=== PATIENT | male | born 1955 | race American Indian/Alaskan Native ===

== ENCOUNTER 2018-07-30 13:37 | Emergency (ER) | payer MEDICARE ==
[2018-07-30 13:58] VITALS: BP 150/74
[2018-07-30] MEDS ORDERED: ZOFRAN IV ONE (14:33)
[2018-07-30] MEDS ORDERED: NACL 0.9% 1000 ML 1,000 ML IV ONE (14:33)
[2018-07-30] MEDS ORDERED: BENTYL IM ONE (14:33)
[2018-07-30] MEDS ORDERED: PEPCID IV ONE (14:33)
--- NOTE | 2018-07-30 14:36 | Emergency Department Report ---
Blank Doc - Documentation Documentation: Patient is a 63-year-old male with past history of ulcerative colitis who is presenting with 2 days of nausea vomiting diarrhea. Patient has diarrhea is watery. He is not noticing any blood in the vomit or stool. Patient unable to keep down even water and that is now feeling dry mouth thickness and some slight fatigue secondary to possible dehydration. Patient denies fever. Patient states that nausea vomiting diarrhea is not a normal symptom that he gets with his ULCERATIVE colitis. Patient will be sent to a treatment room for IV fluids meniscus symptomatic relief as well as a CT of the abdomen and pelvis with labs.
[2018-07-30 14:53] LABS: Hematocrit 40.4 % (35.5-45.6); Hemoglobin 13.5 gm/dl (11.8-15.2); Mean Corpuscular HGB Conc 33 % (32-34); Mean Corpuscular Hemoglobin 29 pg (28-32); Mean Corpuscular Volume 87 fl (84-94); Platelet Count 220 K/mm3 (140-440); Red Blood Count 4.62 M/mm3 (3.65-5.03); Red Cell Distribution Width 14.1 % (13.2-15.2)
[2018-07-30 15:08] LABS: Alanine Aminotransferase 30 units/L (7-56); Albumin 4.1 g/dL (3.9-5); BUN/Creatinine Ratio 16; Blood Urea Nitrogen 14 mg/dL (9-20); Hemolysis Index 4; Lipase 11 units/L (13-60)
[2018-07-30 15:37] LABS: Band Neutrophils # (Manual) 0.1 K/mm3; Basophils % (Manual) 0 % (0.0-1.8); Total Cells Counted 100
[2018-07-30 15:38] LABS: Platelet Estimate Consistent w Auto; RBC Morphology Normal
[2018-07-30 16:50] LABS: Bilirubin,Urine NEG (Negative); Blood,Urine NEG (Negative); Mucus,Urine 3+ /HPF; Urobilinogen,Urine < 2.0 mg/dL (<2.0)
[2018-07-30 16:51] LABS: Color,Urine Dark Yellow (Yellow)
[2018-07-30 16:52] LABS: RBC,Urine < 1.0 /HPF (0.0-6.0)
--- NOTE | 2018-07-30 17:24 | Cat Scan Report ---
FINAL REPORT EXAM: CT ABDOMEN PELVIS W CON HISTORY: NVD abd pain hx of Ulc. colitis TECHNIQUE: CT abdomen and pelvis with intravenous contrast PRIORS: None. FINDINGS: No acute abnormality identified in the lung bases. No focal abnormality identified within the liver parenchyma. The spleen demonstrates normal size and attenuation. No pancreatic abnormalities seen. The kidneys demonstrate symmetric contrast enhancement. No evidence of hydronephrosis. The adrenal glands are unremarkable Abdominal aorta is normal in caliber. No pathologically enlarged lymph nodes are identified. No signs of free fluid or free air No evidence of small bowel dilatation. There is colonic wall thickening from the rectum and sigmoid through the transverse colon most consistent with colitis. There is some mild adjacent inflammatory change descending colon. There are few diverticula present descending colon. Urinary bladder is unremarkable. IMPRESSION: Colonic wall thickening transverse through descending and rectal sigmoid colon most consistent with colitis
[2018-07-30] MEDS ORDERED: SOLU-Medrol IV ONE (17:41)
--- NOTE | 2018-07-30 17:50 | Emergency Department Report ---
ED N/V/D HPI - General Chief complaint: Nausea/Vomiting/Diarrhea Stated complaint: DIARRHEA TWO DAYS Time Seen by Provider: 07/30/18 14:19 Source: patient Mode of arrival: Ambulatory Limitations: No Limitations - History of Present Illness Initial comments: This is a 63-year-old male nontoxic, well nourished in appearance, no acute signs of distress presents to the ED with c/o of nausea and diarrhea x2 days. Patient denies any vomiting. Patient denies any abdominal pain. Patient described diarrhea as watery. Patient denies any blood in stool. Patient denies chest pain, short of breath, fever, chills, headache, stiff neck, numbness or tingling. Patient stated that he tried Immodium with no relief. Patient denies any recent travels. Patient staetd symptoms are similar to ulcerative colitis that he has. Patient denies any allergies. Patient stated had a normal rectal endoscopy 3 months ago. MD complaint: nausea, vomiting, diarrhea -: days(s) (2) Description of Diarrhea: water Associated Abdominal Pain: No Radiation: none Severity: mild Pain Scale: 0 Consistency: constant Improves with: none Worsens with: none Associated Symptoms: nausea/vomiting. denies: myalgias, chest pain, cough, diaphoresis, fever/chills, headaches, loss of appetite, malaise, rash, dysuria, shortness of breath, syncope, weakness - Related Data Previous Rx's Medication Instructions Recorded Last Taken Type Acetaminophen/Codeine [Tylenol 1 tab PO Q6H PRN #12 tab 07/30/18 Unknown Rx /Codeine # 3 tab] Ciprofloxacin HCl [Ciprofloxacin 500 mg PO Q12HR #14 tab 07/30/18 Unknown Rx TAB] Ondansetron [Zofran Odt] 4 mg PO Q6H PRN #20 tab.rapdis 07/30/18 Unknown Rx metroNIDAZOLE [Flagyl] 500 mg PO Q12HR #14 tab 07/30/18 Unknown Rx ED Review of Systems ROS: Stated complaint: DIARRHEA TWO DAYS Other details as noted in HPI Constitutional: denies: chills, fever Eyes: denies: eye pain, eye discharge, vision change ENT: denies: ear pain, throat pain Respiratory: denies: cough, shortness of breath, wheezing Cardiovascular: denies: chest pain, palpitations Endocrine: no symptoms reported Gastrointestinal: nausea, diarrhea. denies: abdominal pain, vomiting, constipation Genitourinary: denies: urgency, dysuria Musculoskeletal: denies: back pain, joint swelling, arthralgia Skin: denies: rash, lesions Neurological: denies: headache, weakness, paresthesias Psychiatric: denies: anxiety, depression Hematological/Lymphatic: denies: easy bleeding, easy bruising ED Past Medical Hx - Past Medical History Previous Medical History?: Yes Additional medical history: Ulcerative Colitis - Surgical History Past Surgical History?: Yes Additional Surgical History: bilatteral knee replacement - Social History Smoking Status: Never Smoker Substance Use Type: None - Medications Home Medications: Home Medications Medication Instructions Recorded Confirmed Last Taken Type Acetaminophen/Codeine [Tylenol 1 tab PO Q6H PRN #12 tab 07/30/18 Unknown Rx /Codeine # 3 tab] Ciprofloxacin HCl [Ciprofloxacin 500 mg PO Q12HR #14 tab 07/30/18 Unknown Rx TAB] Ondansetron [Zofran Odt] 4 mg PO Q6H PRN #20 tab.rapdis 07/30/18 Unknown Rx metroNIDAZOLE [Flagyl] 500 mg PO Q12HR #14 tab 07/30/18 Unknown Rx ED Physical Exam - General Limitations: No Limitations General appearance: alert, in no apparent distress - Head Head exam: Present: atraumatic, normocephalic - Eye Eye exam: Present: normal appearance Pupils: Present: normal accommodation - ENT ENT exam: Present: normal exam, mucous membranes moist - Neck Neck exam: Present: normal inspection, full ROM - Respiratory Respiratory exam: Present: normal lung sounds bilaterally. Absent: respiratory distress, wheezes, rales, rhonchi, chest wall tenderness, accessory muscle use, decreased breath sounds, prolonged expiratory - Cardiovascular Cardiovascular Exam: Present: regular rate, normal rhythm, normal heart sounds. Absent: bradycardia, tachycardia, irregular rhythm, systolic murmur, diastolic murmur, rubs, gallop - GI/Abdominal GI/Abdominal exam: Present: soft, normal bowel sounds. Absent: distended, tenderness, guarding, rebound, rigid, diminished bowel sounds - Rectal Rectal exam: Present: deferred - Extremities Exam Extremities exam: Present: normal inspection, full ROM, normal capillary refill. Absent: tenderness - Back Exam Back exam: Present: normal inspection, full ROM - Neurological Exam Neurological exam: Present: alert, oriented X3, normal gait - Psychiatric Psychiatric exam: Present: normal affect, normal mood - Skin Skin exam: Present: warm, dry, intact, normal color. Absent: rash ED Course Vital Signs 07/30/18 13:54 Temperature 98.8 F Pulse Rate 81 Respiratory 18 Rate Blood Pressure 150/74 O2 Sat by Pulse 95 Oximetry - Reevaluation(s) Reevaluation #1: 07/30/18 17:54 Patient is speaking in full sentences with no signs of distress noted. - Consultations Consultation #1: 07/30/18 17:54 Patient has been consulted with Rodrigo Montiel about patient history, physical exam, and labs and examined and screened patient and agrees to ED plan of care and discharge plan of care. ED Medical Decision Making - Lab Data Result diagrams: 07/30/18 14:39 07/30/18 14:39 - Medical Decision Making This is a 63-year-old male that presents with colitis. Patient is stable and was examined by me and Dr. Miner. There is no abdominal tenderness. Negative signs of symptoms of appendicitis. Labs obtained. UA obtained. CT with contrast abdomen xray obtained and dictated by the radiologist. Patient is notified of the report with no questions noted by the patient. Vital signs are stable prior to discharge. Patient received Solumedrol IV and 1L Normal saline in the ED which patient stated symptoms has resolved and subsided. A by mouth challenge has been obtained and patient tolerated well with no nausea vomiting or diarrhea. Patient was notified of strict precautions of appendicitis symptoms and to return to the ED if symptoms occurs as soon as possible. Patient was also instructed to Follow-up with a primary care doctor in 3-5 days or if symptoms worsen and continue return to emergency room as soon as possible. At time of discharge, the patient does not seem toxic or ill in appearance. No acute signs of distress noted. Patient agrees to discharge treatment plan of care. No further questions noted by the patient. Critical care attestation.: If time is entered above; I have spent that time in minutes in the direct care of this critically ill patient, excluding procedure time. 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 Prescriptions: Acetaminophen/Codeine [Tylenol /Codeine # 3 tab] 1 tab PO Q6H PRN #12 tab PRN Reason: Pain , Severe (7-10) Ciprofloxacin HCl [Ciprofloxacin TAB] 500 mg PO Q12HR #14 tab metroNIDAZOLE [Flagyl] 500 mg PO Q12HR #14 tab Ondansetron [Zofran Odt] 4 mg PO Q6H PRN #20 tab.rapdis PRN Reason: Nausea Referrals: PRIMARY CARE, [Primary Care Provider] - 3-5 Days ARGENTINA PALOMO MD [Staff Physician] - 3-5 Days [facility] [Outside] - 3-5 Days [facility] [Outside] - 3-5 Days [facility] [Provider Group] - 3-5 Days Forms: Work/School Release Form(ED)
== END 2018-07-30 18:32 | disposition home or self-care (01) ==
LOC: ED 13:37
DX: K52.9 Noninfective gastroenteritis and colitis, unspecified (principal)
CPT/HCPCS: 36415; 74177; 80053; 81001; 83690; 85007; 85025; 96372; 96374; 96375; 99284; J0500; J2405; J2930; J7030; Q9967